=== PATIENT | female | born 1955 | race Caucasian/White ===

== ENCOUNTER → 2019-08-06 | Day surgery (SDC) | payer BC ==
[~2019-08-06] MED LIST: LEXAPRO10 MG PO; LOSARTAN POTASS25 MG PO; MELATONIN3 M1 PO; METFORMIN HCL500 M2 PO; MIDAZOLAM HCL 2 MG/2 ML VIAL ONE; NEXIUM40 MG PO; ONDANSETRON HCL INJ 2MG/ML 2ML 2 MG/ML VIAL ONE; PROPOFOL IV EMULSION 10 MG/ML 50 ML VIAL ONE; RANITIDINE HCL300 M1 PO; SIMVASTATIN20 MG PO; SYNTHROID75 MCG PO; VALACYCLOVIR500 MG PO; VITAMIN D35000 UNIT PO; ZOLPIDEM TARTRA10 MG PO
--- OUTSIDE RECORDS SUMMARY | 2019-08-06 05:20 | XMS REPORT ---
Author Author [facility] Address Unknown Phone Unavailable Care Team Providers [facility]ist Name Role Phone KYLE DICKERSON Unavailable Unavailable Payers Payer Name Policy Type Policy Number Effective Date Expiration Date Problems This patient has no known problems. Allergies, Adverse Reactions, Alerts Allergy Name Allergy Type Status Severity Reaction(s) Onset Date Inactive Date Treating Clinician Comments oxycodone HCl DA Active U 2018-10-12 00:00:00 Sulfa (Sulfonamide Antibiotics) DA Active U 2018-10-12 00:00:00 oxycodone HCl DA Active U 2016-04-08 00:00:00 Oxycodone Terephthalate DA Active U 2016-04-08 00:00:00 Sulfa (Sulfonamide Antibiotics) DA Active U 2016-04-08 00:00:00 codeine DA Active U 2016-04-08 00:00:00 hydrocodone DA Active U 2016-04-08 00:00:00 aspirin DA Active U 2016-04-08 00:00:00 ciprofloxacin DA Active U 2016-04-08 00:00:00 clarithromycin DA Active U 2016-04-08 00:00:00 Medications This patient has no known medications. Results Test Description Test Time Test Comments Text Results Atomic Results Result Comments MR, ABDOMEN, WITH 2018-11-09 12:12:00 SL PANCREAS REFERRING: KASEY JIN [[id number]] FINAL REPORT MRI abdomen without and with contrast. MRCP. INDICATION: PANCREAS CYST COMPARISON: 02/17/2016 TECHNIQUE: Multiplanar multisequence MRI examination of the abdomen was performed before and after the administration of intravenous contrast in a dynamic fashion. 3 dimensional reconstructions of the hepatobiliary system were generated on an independent workstation for optimal visualization of the hepatobiliary anatomy and pathology. FINDINGS: In the body of the pancreas, there is a simple appearing cystic lesion measuring 6 x 4 mm, decreased since prior examination. Another 7 x 4 mm cystic lesion is also seen in the uncinate process of the pancreas, unchanged since prior examination. There is no associated abnormal enhancement. There is no pancreatic ductal dilatation. No new or enhancing lesion is seen. The liver is diffusely fatty. The patient is status post cholecystectomy with slight prominence of the common bile duct measuring up to 8 mm. There is pneumobilia. There is no intrahepatic biliary dilatation. The spleen, adrenal glands, and kidneys are unremarkable. The stomach is underdistended limiting its evaluation. There is no bowel obstruction. There is no lymphadenopathy. There is no fluid collection or hematoma. The osseous structures demonstrate degenerative change. IMPRESSION:1. Interval decrease in the cystic lesion in the pancreatic body and stable cystic lesion in the uncinate process, suggestive of IPMN or other nonaggressive cystic lesions as above. No suspicious features.2. Fatty liver. Status post cholecystectomy. Signed: Kenyon Leon MDReport Verified Date/Time: 11/09/2018 12:12:47 Reading Location: [place] [id number] [facility] Consult Reading Room -CREATININE 2018-11-09 10:17:00 POC-CREATININE (CHRISTIANO) (test iyml=8940) 0.5 mg/dL 0.6-1.[address] [address] POC-EGFR (CHRISTIANO) (test nhgz=3067) 125 mL/min/1.73M2 SOFT [id number] 17:14:00 RUN DATE: 10/18/18 [facility] - Lab PAGE 1 RUN TIME: 1714 Specimen Inqui ry RUN USER: INTERFACE PATIENT: EDELMIRA GILMORE ACCT #: V [id number] LOC: MADELYNU U #: [id number] AGE/SX: 63/F ROOM: RE10/17/18REG DR: Charly Rodriguez MD : 55 BED: DIS: STATUS: [facility] TLOC: SPEC #: [id number] RECD: 10/17/18 STATUS: AIDA REQ #: [id number] YSABEL: 10/17/18- SUBM DR: Charly Rodriguez MD ENTERED: 10/17/18-110 SP TYPE: SOFT MASS OTHR DR: Ron Giraldo MD ORDERED: GROSS COPIES TO: Ron Giraldo MD [id number], [address] [place] [address] Charly Rodriguez MD [id number] [place] [address] PROCEDURES: GROSS (10/18/18-1342) TI SSUES: 1. CHEST WALL, NOS - RIGHT ANTERIOR MASS 2. SHOULDER, N OS - LEFT MASS 3. SHOULDER, NOS - RIGHT MASS 4. LEFT ARM - SOFT TISSUE MASS 5. CLAVICLE, NOS - RIGHT SUB MASS CLINICAL HISTORY COLLECTION DATE: 10/17/18 SOFT TISSUE MASS LEFT ARM, RIGHT SUPRACLAVICUL AR, SKIN LESION RIGHT SHOULDER, MULTIPLE SKIN LESIONS FINAL DIAGNOSIS Anterior chest wall, mass, excision: INTRADERMAL NEVUS NEGATIVE FOR MALIGNANCY Left shoulder mass, excision: INTRADERMAL NEVUS NEGATIVE FOR MALIGNANCY Right shoulder, mass, excision: COMPOUN D NEVUS NEGATIVE FOR MALIGNANCY Left arm, soft tissue mass, excisio n: CONTINUED ON NEXT PAGE RUN D ATE: 10/18/18 [facility] GE 2 RUN TIME: 1714 Specimen Inquiry RUN USER: INTERFACE SPEC #: [id number] PATIENT: EDELMIRA GILMORE #[id number] (Continued) FINAL DIAGNOSIS (Omar nued) INTRAMUSCULAR LIPOMA NEGATIVE FOR MALIGNANCY Right cote praclavicular mass, excision: LIPOMA NEGATIVE FOR MALIGNANCY W/ D [phone] [phone] MACROSCOPIC The first specim en is received in formalin, labeled with the patient's name and identified as "right anterior chest wall mass". It consists of an ellipse of orellana skin measu ring 0.6 X 0.4 cm with a raised nodular pink lesion measuring 0.3 X 0.3 X 0.25 cm. The specimen is not oriented. The cut surface is light orellana. The tissue is bisected and submitted as (1). The second specimen is received in form amara, labeled with the patient's name, and identified as "left shoulder mass". It consists of a small ellipse of pink-orellana tissue measuring 0.5 X 0.25 X 0.2 cm. The cut surface is inked green, tissue is bisected and submitted as (2). The third specimen is received in formalin, labeled with the patient's nam e, and identified as "right shoulder mass". It consists of an ellipse of un oriented orellana skin with light to medium pigmentation measuring 2.3 X up to 1.4 cm and excised to a depth of up to 0.3 cm. A slightly raised mildly hyperpigm ented lesion is present on the skin surface measuring 0.7 X 0.6 X 0.1 cm. The cut surface of the tissue is light orellana to pale white. Tissue is serially sec tioned and entirely submitted as (3). The fourth specimen is received in f ormalin, labeled with the patient's name, and identified as "soft tissue mass left arm". It consists of fragments of pale yellow-light pink fatty tissue me asuring 5.0 X 3.5 X 1.5 cm in aggregate. No discrete areas of hemorrhage or ne crosis are seen. [employer] tissue is submitted as (4). The fifth s pecimen is received in formalin, labeled with the patient's name, and identifi ed as "right subclavicular mass". It consists of two roughly ovoid portions o f yellow fatty tissue. The smaller measures 3.0 X 2.1 X 1.3 cm and the larger measures 4.0 X up to 3.2 X up to 1.7 cm. The cut surface of the tissue is ye llow-red and fatty. No discrete areas of hemorrhage or necrosis are seen. Section Code: 5A- section from smaller portion of tissue; 5B- section fro m the larger portion of tissue. CONTINUED ON NEXT PAGE RUN DATE: 10/18/18 [facility] PAGE 3 RUN TIME: 1714 Specimen Inquiry RUN USER: INTERFACE SPEC #: [id number] PATIENT: GILMOREEDELMIRA GORDILLOZABETH #[id number] (Continued) MACROSCOPIC (Continued) GROSS PERFORMED AT [facility] [address] [place] [address] (p )[phone] MICROSCOPIC MICROSCOPIC PERFORMED AT [facility] All of the stains, including any controls performed, stain tulio durán. [facility] [address] [place] [address] (p) [phone] PERFORMING SITE Diagnosis performed at: [facility], [address] [place] [address] Signed SIGNATURE ON FILE Josi Last Javier 10/18/18 1714 END OF REPORT
[2019-08-06 08:05] VITALS: BP 107/46
== END | disposition home or self-care (01) ==
LOC: OR 05:00
PROVIDERS: ATTEND Internal Medicine Gastroenterology
DX: Z12.11 Encounter for screening for malignant neoplasm of colon (principal); K64.8 Other hemorrhoids; Z01.810 Encounter for preprocedural cardiovascular examination; I10 Essential (primary) hypertension; E11.9 Type 2 diabetes mellitus without complications; Z79.84 Long term (current) use of oral hypoglycemic drugs; K21.9 Gastro-esophageal reflux disease without esophagitis; D13.6 Benign neoplasm of pancreas
CPT/HCPCS: 36415; 45378; 82948; 93005; J2250; J2405; J2704